=== PATIENT | male | born 1980 | race Caucasian/White ===

== ENCOUNTER 2018-01-17 13:53 | Inpatient (IN) | payer BC, MEDICAID ==
[2018-01-17] VITALS (9 sets, daily range): BP systolic 102–145; BP diastolic 72–93
[~2018-01-17] VITALS: Ht 177.8 cm; Wt 94.3 kg
[2018-01-17] MEDS ORDERED: ONDANSETRON HCL/PF 4 MG/2 ML VIAL IVP ONE (14:30)
[2018-01-17] MEDS ORDERED: IV NS 0.9% 1,000 ML BAG IV ONE ×3 (14:30→18:00)
[2018-01-17] MEDS ORDERED: FAMOTIDINE/PF INJ 20 MG/2 ML VIAL IV ONE ×3 (14:30→14:35)
[2018-01-17] MEDS ORDERED: LORAZEPAM INJ 2 MG/ML VIAL IV ONE ×2 (14:30→18:30)
--- NOTE | 2018-01-17 14:30 | NUR ---
32 yo male bb self. patient is alert and orietned, c/o abd pain. patient ambulated to er bed, skin warm and dry, resp even and unlabored. awaiting order sfrom provider, will continue to monitor
[2018-01-17] MEDS ORDERED: ONDANSETRON HCL/PF 4 MG/2 ML VIAL ONE (14:34)
[2018-01-17] MEDS ORDERED: LORAZEPAM INJ 2 MG/ML VIAL ONE (14:35)
[2018-01-17 14:39] LABS: APPEARANCE,URINE SLIGHTLY HAZY (CLEAR); BILIRUBIN,URINE LARGE (NEGATIVE); BLOOD, URINE Moderate Ery/uL (NEGATIVE); COLOR,URINE DARK YELLOW (YELLOW); KETONES,URINE 80 (NEGATIVE); LEUKOCYTE ESTERASE ,URINE Negative (NEGATIVE); NITRITE, URINE Negative (NEGATIVE); PH,URINE 5.5 (5.0-8.0); PROTEIN,URINE >=300 mg/dl (NEGATIVE); UGLUCOSE Negative (NEGATIVE)
[2018-01-17 14:46] LABS: BACTERIA,URINE None seen /HPF (None Seen); SQUAMOUS EPITHELIAL CELL,UR Few /HPF (None Seen); WBC,URINE 0-2 /HPF (0-3)
[2018-01-17 14:47] LABS: HYALINE CASTS, URINE Moderate /LPF (None Seen)
[2018-01-17 14:49] LABS: BASOPHILS # (AUTO) 0.5 /CMM (0.0-0.2); BASOPHILS % (AUTO) 2.8 % (0.0-2.0); EOSINOPHILS % (AUTO) 0.6 % (0.0-6.0); HEMATOCRIT 51 % (39-51); HEMOGLOBIN 17.6 g/dL (13.5-17.5); LYMPHOCYTES # (AUTO) 0.5 /CMM (0.8-4.8); LYMPHOCYTES % (AUTO) 2.9 % (20.0-44.0); MEAN CORPUSCULAR HGB CONC 35 g/dl (31.0-36.0); MEAN CORPUSCULAR VOLUME 98 fL (80-96); MONOCYTES # (AUTO) 1.2 /CMM (0.1-1.30); MONOCYTES % (AUTO) 6.8 % (2.0-12.0); NEUTROPHILS % (AUTO) 86.9 % (43.0-81.0); RDW COEFFICIENT OF VARIATION 12.6 (11.5-15.0); WHITE BLOOD COUNT (AUTO) 18.3 K/uL (4.3-11.0)
[2018-01-17 14:54] LABS: PLATELET COUNT (AUTO) 164 /CMM (150-450)
[2018-01-17 15:09] LABS: ALANINE AMINOTRANSFERASE 279 U/L (12-78); ALBUMIN 4.6 g/dL (3.4-5.0); ALKALINE PHOSPHATASE 97 U/L (46-116); ASPARTATE AMINOTRANSFERASE 223 U/L (15-37); BILIRUBIN,DIRECT 1.3 mg/dL (0.0-0.2); BILIRUBIN,TOTAL 2.9 mg/dL (0.2-1.0); CALCIUM, SERUM 8.8 mg/dL (8.5-10.1); CHLORIDE 85 mmol/L (98-107); CREATININE 2.6 mg/dL (0.6-1.3); GLUCOSE 346 mg/dL (74-106); POTASSIUM 5.9 mmol/L (3.5-5.1); SODIUM SERUM 127 mmol/L (136-145); TOTAL PROTEIN, SERUM 9.1 g/dL (6.4-8.2); UREA NITROGEN, BLOOD 17 mg/dL (7-18)
[2018-01-17 15:12] LABS: CARBON DIOXIDE 8 mmol/L (21-32)
[2018-01-17 15:50] LABS: LIPASE > 1500 U/L (73-393)
--- NOTE | 2018-01-17 16:00 | NUR ---
patient transported to ct via [place]
--- NOTE | 2018-01-17 16:22 | NUR ---
report given to rn for abby
--- NOTE | 2018-01-17 16:24 | NUR ---
transported pt to icu bed without incident
--- NOTE | 2018-01-17 16:49 | NUR ---
received patient from er bed #2. dr katlyn guevara aware of admission. patient states pain in abd still present but better. patient is shakey; ativan given in er. nausea still present but no vomiting episodes at this time. patient ambulatory unsteady gate. denies sob, difficulty breathing. bp 145/93. sinus tachy 113. 100% room air. respirations 25-35 with activity. safety precautions in place, hob elevated. call light in reach. will round prn
--- NOTE | 2018-01-17 16:55 | NUR ---
GERALD METCALF AT BEDSIDE. AWARE OF CRITICAL LAB LACTIC ACID 4.4.
--- NOTE | 2018-01-17 17:40 | NUR ---
PER GERALD METCALF GIVE PATIENT WIDE OPEN 2L NS BOLUS. AND GIVE 1MG DILAUDID IVP ONCE
[2018-01-17] MEDS ORDERED: HYDROMORPHONE INJ 0.5 MG/0.5 ML SYRINGE IV ONE (18:00)
[2018-01-17] MEDS ORDERED: IV NS 0.9% 1,000 ML IV SCH (18:00)
[2018-01-17] MEDS ORDERED: HYDROMORPHONE 1 MG/1 ML DISP.SYRIN IV ONE (18:00)
--- NOTE | 2018-01-17 18:03 | NUR ---
PER GERALD TEA ORDER 2MG IVP ATIVAN ONCE. UPDATED ON CT RESULTS
[2018-01-17] MEDS ORDERED: ONDANSETRON HCL/PF 4 MG/2 ML VIAL IVP PRN (18:30)
--- NOTE | 2018-01-17 18:38 | NUR ---
PAVING RAMMER AT BEDSIDE. PATIENT STATES DILAUDID HAS HELPED GREATLY WITH PAIN; APPEARS MORE COMFORTABLE. PATIENT HAD 1 EPISODE OF GREEN LOOKING EMESIS; GERALD METCALF AWARE. ALL NEEDS ASSESSED AND MET. SAFETY PRECAUTIONS IN PLACE. CALL LIGHT IN REACH. WILL ENDORSE CARE TO RN FOR CANDICE. PENDING ELECTROLYTE LEVELS PER MD.
[2018-01-17 19:12] LABS: MAGNESIUM 1.5 mg/dL (1.8-2.4); PHOSPHORUS 3.1 mg/dL (2.5-4.9)
--- NOTE | 2018-01-17 19:25 | NUR ---
1925 Received patient awake alert and oriented x3.VS stable.ST 111-112.Respiration even and unlabored SPO2 99% on RA.Denies any discomfort at present.NS 2nd liter bolus infusing to RAC site intact.Instructed patient to use call light at bedside for assistance.Verbalized understanding.
[2018-01-17] MEDS: IV NS 0.9% 1,000 ML IV PRN (20:22)
[2018-01-17] MEDS: HYDROMORPHONE INJ 0.5 MG/0.5 ML SYRINGE IV PRN ×2 (20:29→22:38)
[2018-01-17] MEDS: LORAZEPAM INJ 2 MG/ML VIAL IV PRN ×2 (20:30→22:38)
[2018-01-17 21:32] LABS: CALCIUM, SERUM 7.2 mg/dL (8.5-10.1); CREATININE 2.1 mg/dL (0.6-1.3); POTASSIUM 5.8 mmol/L (3.5-5.1)
[2018-01-17] MEDS ORDERED: SODIUM POLYSTYRENE SULFONATE 15 G/60 ML BOTTLE PO ONE (23:30)
[2018-01-17 23:55] LABS: INR 1.01 (0.87-1.13)
[2018-01-17] MEDS: Magnesium 1GM/D5W 100ML PREMIX 100 ML IV SCH (23:56)
[2018-01-18] VITALS (27 sets, daily range): BP systolic 101–129; BP diastolic 62–89
[2018-01-18] MEDS ORDERED: IV NS 0.9% 250 ML BAG IV ONE
--- NOTE | 2018-01-18 | NUR ---
Patient labs MG 1.5 to received 4 GM Magnesium IVPB over 4 hrs. K+ 5.8 kayexelate 60 gm given po per MD'S orders.
[2018-01-18] MEDS: LORAZEPAM INJ 2 MG/ML VIAL IV PRN (00:38)
[2018-01-18] MEDS: HYDROMORPHONE INJ 0.5 MG/0.5 ML SYRINGE IV PRN (00:40)
[2018-01-18] MEDS: Magnesium 1GM/D5W 100ML PREMIX 100 ML IV SCH ×3 (01:00→03:00)
[2018-01-18] MEDS: IV NS 0.9% 1,000 ML IV PRN ×3 (02:27→19:29)
--- NOTE | 2018-01-18 03:00 | NUR ---
Bladder scan shows 999 ml.Called to Cheryl PASTRANA with orders.In and Out Cath done under sterile technique obtained 1000 ml clear luba urine.Patient tolerated procedure well.
--- NOTE | 2018-01-18 04:00 | NUR ---
Patient resting.VS stable.SR.AM care done.Turned and repositioned with patient assisting. Denies pain or any discomfort.No bm noted yet from Kayexelate.
[2018-01-18 04:47] LABS: BASOPHILS % (AUTO) 0.4 % (0.0-2.0); HEMATOCRIT 43 % (39-51); HEMOGLOBIN 14.9 g/dL (13.5-17.5); LYMPHOCYTES # (AUTO) 0.3 /CMM (0.8-4.8); LYMPHOCYTES % (AUTO) 3.7 % (20.0-44.0); MEAN CORPUSCULAR HGB CONC 34 g/dl (31.0-36.0); MEAN CORPUSCULAR VOLUME 98 fL (80-96); MONOCYTES # (AUTO) 0.7 /CMM (0.1-1.30); MONOCYTES % (AUTO) 8.7 % (2.0-12.0); NEUTROPHILS # (AUTO) 7.2 /CMM (1.8-8.9); NEUTROPHILS % (AUTO) 87.2 % (43.0-81.0); PLATELET COUNT (AUTO) 86 /CMM (150-450); RED BLOOD CELL COUNT(AUTO) 4.45 MIL/uL (4.5-6.0); WHITE BLOOD COUNT (AUTO) 8.3 K/uL (4.3-11.0)
[2018-01-18 05:22] LABS: THYROID STIMULATING HORMONE 2.866 uIU/mL (0.358-3.74)
[2018-01-18 05:23] LABS: LYMPHOCYTES % (MANUAL) 1 % (16-48); MONOCYTES % (MANUAL) 10 % (0-11.0); NEUTROPHILS % (MANUAL) 89 (42-76)
[2018-01-18 05:24] LABS: ALBUMIN 3.2 g/dL (3.4-5.0); BILIRUBIN,TOTAL 1.8 mg/dL (0.2-1.0); CALCIUM, SERUM 7.6 mg/dL (8.5-10.1); MAGNESIUM 2.7 mg/dL (1.8-2.4); PHOSPHORUS 1.8 mg/dL (2.5-4.9); POTASSIUM 4.5 mmol/L (3.5-5.1); TOTAL PROTEIN, SERUM 6.5 g/dL (6.4-8.2)
--- NOTE | 2018-01-18 07:21 | NUR ---
Patient resting.VS stable.Patient not voided freely since in and out cath done at 0300.No BM noted all throughout the shift.No seizure activity noted.Report given to incoming shift RN for continuity of care.
--- NOTE | 2018-01-18 07:30 | NUR ---
RECEIVED PATIENT A/OX4 DENIES PAIN AT THIS TIME. LETHARGIC. IVF RUNNING ORDERED. NEEDS IN REACH. SAFETY PRECAUTIONS IN PLACE. PATIENT GIVEN KAYEXALATE FOR ELEVATED K AND REPEAT WNL. PER NIGHT RN PATIENT WAS NOT URINATING HOWEVER NO HX OF RETENTION. IN AND OUT CATH PRODUCED 1000ML. WILL MONITOR OUTPUT. IV SITE CLEAN DRY AND INTACT. WILL ROUND PRN. NO S/S SEIZURE ACTIVITY.
--- NOTE | 2018-01-18 08:33 | NUR ---
CARE ENDORSED TO MELANY WHEATLEY FOR CANDICE
--- NOTE | 2018-01-18 10:41 | NUR ---
Social service consult requested by Dr. Hayden for alcohol abuse. Pt. is a 37 year old male who was admitted to [facility] ICU for pancreatitis/alcohol disorder. SW attempted to assess pt. bedside, however pt. was too drowsy for an assessment. SW to follow up again this afternoon when pt. is more alert and oriented.
[2018-01-18] MEDS ORDERED: K PHOS NEUTRAL 250 MG TABLET PO ONE (14:30)
[2018-01-18] MEDS: ACETAMINOPHEN 325 MG TABLET PO PRN (16:21)
--- NOTE | 2018-01-18 16:36 | NUR ---
BIOPHYSICS SCIENTIST NOTE: PATIENT TEMP 101.1. TYLENOL GIVEN, COOLING MEASURES DONE MOM @ BEDSIDE. GERALD METCALF N.P. NOTIFIED.
--- NOTE | 2018-01-18 17:00 | NUR ---
STOCK MIXER NOTE : TEMP 98.8.
--- NOTE | 2018-01-18 19:19 | NUR ---
DOOR TO DOOR SELLING DISTRIBUTOR NOTE: PATIENT CLINICALLY STABLE NO SOB, NO N/V, NO C/O PAIN. REPORT GIVEN TO JAYCEE MOSLEY FOR CANDICE. ALL SAFETY MEASURES IN PLACE.
--- NOTE | 2018-01-18 19:30 | NUR ---
Received patient A/O X 4.Temp 99.5 orally.Patient desat to 88% encouraged to cough and deep breath.O2 sat up to 94% on RA.ST 112-115.Denies pain, nausea or vomiting.IVF Hydration in progress via RAC and site intact.Offered clear liquid dinner but took mostly water and jello. For safety encouraged patient to use call light at BS for assistance.Verbalized understanding.
[2018-01-18 21:19] LABS: CALCIUM, SERUM 7.5 mg/dL (8.5-10.1); CREATININE 1.5 mg/dL (0.6-1.3)
[2018-01-18 21:21] LABS: POTASSIUM 2.8 mmol/L (3.5-5.1)
--- NOTE | 2018-01-18 21:30 | NUR ---
PM lab resulted K+ level 2.8 relayed to Antione PASTRANA with orders and carried out.
[2018-01-18] MEDS: POTASSIUM CL. PREMIX PERIPHER. 50 ML IV SCH ×3 (21:39→23:40)
[2018-01-19] VITALS (21 sets, daily range): BP systolic 114–133; BP diastolic 74–93
[2018-01-19] MEDS: POTASSIUM CL. PREMIX PERIPHER. 50 ML IV SCH ×7 (00:40→15:26)
[2018-01-19] MEDS: IV NS 0.9% 1,000 ML IV PRN ×4 (02:18→23:44)
--- NOTE | 2018-01-19 04:00 | NUR ---
Patient awake.Latest Temp 100.4 orally.Bed bath rendered with complete linens changed. Tolerating po liquids.IV hydration infusing well.Denies pain.Continue monitoring.
[2018-01-19 04:37] LABS: BASOPHILS % (AUTO) 0.5 % (0.0-2.0); EOSINOPHILS % (AUTO) 0.2 % (0.0-6.0); HEMATOCRIT 36 % (39-51); HEMOGLOBIN 12.6 g/dL (13.5-17.5); LYMPHOCYTES # (AUTO) 0.3 /CMM (0.8-4.8); LYMPHOCYTES % (AUTO) 5.3 % (20.0-44.0); MEAN CORPUSCULAR HGB CONC 35 g/dl (31.0-36.0); MEAN CORPUSCULAR VOLUME 97 fL (80-96); MONOCYTES # (AUTO) 0.5 /CMM (0.1-1.30); MONOCYTES % (AUTO) 8.8 % (2.0-12.0); NEUTROPHILS # (AUTO) 4.8 /CMM (1.8-8.9); NEUTROPHILS % (AUTO) 85.2 % (43.0-81.0); RDW COEFFICIENT OF VARIATION 13.4 (11.5-15.0); WHITE BLOOD COUNT (AUTO) 5.7 K/uL (4.3-11.0)
[2018-01-19 04:59] LABS: ALBUMIN 2.5 g/dL (3.4-5.0); BILIRUBIN,TOTAL 1.5 mg/dL (0.2-1.0); CALCIUM, SERUM 7.5 mg/dL (8.5-10.1); CREATININE 1.3 mg/dL (0.6-1.3); PHOSPHORUS 1.5 mg/dL (2.5-4.9); POTASSIUM 2.9 mmol/L (3.5-5.1); TOTAL PROTEIN, SERUM 5.6 g/dL (6.4-8.2)
[2018-01-19 05:28] LABS: PLATELET COUNT (AUTO) 30 /CMM (150-450)
[2018-01-19 05:39] LABS: BAND % (MANUAL) 5 % (0.0-5.0); LYMPHOCYTES % (MANUAL) 1 % (16-48); MONOCYTES % (MANUAL) 7 % (0-11.0); NEUTROPHILS % (MANUAL) 87 (42-76)
--- NOTE | 2018-01-19 07:23 | NUR ---
Patient no complaints presented.AM labs resulted with potassium level 2.8,redraw down to 2.7 all done peripherally.platelet count 30.Results relayed to Irina PASTRANA with orders.Report given to MELANY Lacey for continuity of care.
--- NOTE | 2018-01-19 08:10 | NUR ---
INITIAL BIRTHING NURSE NOTE RCVD PT AWAKE AND ALERT, SHOWING NO S/O DISTRESS OR C/O PAIN AT THIS TIME. ST ON TELE. ON RA TOLERATING WELL. VOIDING TO URINAL. IV SITE C/D/I/PATENT. NO S/O INFILTRATION/PHLEBITIS OBSERVED IVF INFUSING. WILL CONTINUE TO MONITOR PT FOR SAFETY AND COMFORT. CALL LIGHT WITHIN REACH. BED IN LOW AND LOCKED POSITION.
--- NOTE | 2018-01-19 10:12 | NUR ---
BINDERY MACHINE SETTER NOTE PT BEING TRANSFERRED TO [address] [place] [address] IN STABLE CONDITION. REPORT GIVEN MELANY METCALF.
--- NOTE | 2018-01-19 10:30 | NUR ---
PT TRANSFERED TO TELE 3W FROM ICU. NO SOB OR DISTRESS NOTED. PATIENT DENIES PAIN. REPORT RECEIVED FROM JOSEPH FOR CANDICE. HEART RATE SINUS TACH 113.
[2018-01-19] MEDS: ACETAMINOPHEN 325 MG TABLET PO PRN (10:57)
[2018-01-19] MEDS ORDERED: NEUTRA PHOS 1 POWD.PACKET NG ONE (11:30)
--- NOTE | 2018-01-19 13:46 | NUR ---
Social service consult requested by Dr. Hayden for alcohol abuse. Pt. is a 37 year old male who was admitted to [facility] for pancreatitis/alcohol disorder. BURTON met with pt. bedside. Pt. is alert and oriented x 4. Pt. stated he is feeling much better today. Pt. resides alone in an apartment located at [address] [place] [address], [address] [place] [address]. Pt. states he drinks a bottle of whiskey per day. Pt. has been drinking a bottle per day for the past five years. Pt. was in an alcohol treatment program in [place] three years ago. BURTON inquired with pt. if he is interested in attending an alcohol treatment program. Pt. declined but is open to getting a list of alcohol treatment programs. SW to give pt. a list of alcohol treatment programs prior to discharge. Pt. stated he was suffering from Depression and anxiety but is doing better. BURTON encouraged pt. to see a therapist. Pt. agreed. SW to give pt. list of mental health clinics prior to discharge as well. Pt. denies suicidal/homicidal ideations and visual/auditory hallucinations at this time. No other social service needs are requested at this time. BURTON is available, if needed. Addendum: 01/19/18 at 1514 by HERIBERTO MANRIQUE BURTON met with pt.bedside and gave him list of alcohol treatment programs which include [facility] and [facility]. BURTON also gave pt. list of mental health clinics which included [facility] health, [facility] etc.
--- NOTE | 2018-01-19 14:21 | NUR ---
REPORT GIVEN TO DARLYN FOR CANDICE. PATIENT RESTING COMFORTABLY IN BED. NO SOB OR DISTRESS NOTED AT THIS TIME.
--- NOTE | 2018-01-19 14:30 | NUR ---
SPINNER FRAME NOTES RECEIVED PT FROM TEA MOSLEY, PT IS AWAKE, ALERT AND ORIENTED, DENIES PAIN AT THIS TIME, NOT IN DISTRESS, CALL LIGHT WITHIN REACH, IV FLUIDS INFUSING WELL, NEEDS ATTENDED, KEPT COMFORTABLE IN BED.
[2018-01-19] MEDS: LORAZEPAM INJ 2 MG/ML VIAL IV PRN ×2 (15:25→22:49)
--- NOTE | 2018-01-19 19:00 | NUR ---
TREAD BUILDER NOTES PT IN BED, ASLEEP, EASY TO AROUSE, ALERT AND ORIENTED, DENIES PAIN OR ANY DISCMFORT, RESPIRATIONS NORMAL, CALL LIGHT WITHIN REACH, KEPT COMFORTABLE, ALL NEEDS ATTENDED.
--- NOTE | 2018-01-19 19:30 | NUR ---
RN NOTES RECEIVED PT ASLEEP, HOB ELEVATED, NO SIGNS OF DISTRESS AND DISCOMFORT NOTED. BREATHING REGULAR AND UNLABORED, ON ROOM AIR AND TOLERATED WELL. IV ACCESS ON LEFT FOREARM AND RIGHT AC PATENT AND INTACT WITH ONGOING IVF INFUSING WELL. SAFETY MEASURES AND FALL PRECAUTION OBSERVED. WILL CONTINUE TO MONITOR PT.
[2018-01-19 21:21] LABS: CALCIUM, SERUM 7.4 mg/dL (8.5-10.1); CREATININE 1.1 mg/dL (0.6-1.3); POTASSIUM 3.1 mmol/L (3.5-5.1)
[2018-01-20] VITALS: BP 151/98
[2018-01-20] MEDS ORDERED: POTASSIUM CHLORIDE 20 MEQ TAB.PRT.SR PO ONE
[2018-01-20 04:01] VITALS: BP 142/89
[2018-01-20] MEDS: IV NS 0.9% 1,000 ML IV PRN (06:02)
[2018-01-20 06:52] LABS: BASOPHILS % (AUTO) 0.5 % (0.0-2.0); EOSINOPHILS % (AUTO) 1.6 % (0.0-6.0); HEMATOCRIT 35 % (39-51); HEMOGLOBIN 12.5 g/dL (13.5-17.5); LYMPHOCYTES # (AUTO) 0.6 /CMM (0.8-4.8); LYMPHOCYTES % (AUTO) 11.5 % (20.0-44.0); MEAN CORPUSCULAR HGB CONC 35 g/dl (31.0-36.0); MEAN CORPUSCULAR VOLUME 97 fL (80-96); MONOCYTES # (AUTO) 0.5 /CMM (0.1-1.30); MONOCYTES % (AUTO) 9.8 % (2.0-12.0); NEUTROPHILS # (AUTO) 3.9 /CMM (1.8-8.9); NEUTROPHILS % (AUTO) 76.6 % (43.0-81.0); PLATELET COUNT (AUTO) 82 /CMM (150-450); RDW COEFFICIENT OF VARIATION 13.3 (11.5-15.0); RED BLOOD CELL COUNT(AUTO) 3.66 MIL/uL (4.5-6.0); WHITE BLOOD COUNT (AUTO) 5.1 K/uL (4.3-11.0)
[2018-01-20 07:09] LABS: ALBUMIN 2.6 g/dL (3.4-5.0); BILIRUBIN,TOTAL 1.7 mg/dL (0.2-1.0); CALCIUM, SERUM 7.7 mg/dL (8.5-10.1); CREATININE 0.9 mg/dL (0.6-1.3); MAGNESIUM 2.2 mg/dL (1.8-2.4); PHOSPHORUS 1.4 mg/dL (2.5-4.9); POTASSIUM 3.3 mmol/L (3.5-5.1); TOTAL PROTEIN, SERUM 5.8 g/dL (6.4-8.2)
--- NOTE | 2018-01-20 07:24 | NUR ---
RN NOTES PT SLEPT OVERNIGHT, VITAL SIGNS STABLE. CURRENT DIET TOLERATED WELL. DENIES PAIN NAUSEA AND VOMITING. TELEMONITOR READS SINUS RHYTHM WITH HEART RATE AT 79. NO SIGNIFICANT CHANGE IN CONDITION NOTED. WILL ENDORSE TO ORNING RN FOR CONTINUITY OF CARE.
[2018-01-20 08:00] VITALS: BP 138/86
--- NOTE | 2018-01-20 08:00 | NUR ---
RN NOTES RECEIVED PATIENT IN THE BED RESTING, PATIENT A/O X4, NO SOB, NO RESPIRATORY DISTRESS. PATIENT REFUSED PAIN AT THIS TIME, ALSO CLEAR LIQUID DIET, REDIRECTABLE. V/S TAKEN. INFUSING NS AT 150 ML /HR INTACT. ENCOURAGED TO EXPRESS FEELINGS AND CONCERNS. PATIENT USING URINAL AND BRP. CALL LIGHT WITHIN TO REACH. CONTINUED MONITORING.
--- NOTE | 2018-01-20 09:06 | NUR ---
RN NOTES PATIENT D/C TELE TO MED/SURGE BY Dr. KHALIL, CONTINUED MONITORING.
[2018-01-20] MEDS: ACETAMINOPHEN 325 MG TABLET PO PRN (09:14)
--- NOTE | 2018-01-20 09:14 | NUR ---
RN NOTES ADMINISTERED TYLENOL 650 MG PO PRN FOR T-100.1, ALSO GIVEN ICE PACKS PUT ON ARMPITS., V/S TAKEN STABLE BP- 147/73, P-92, R-19, O2-98 ROOM AIR. PATIENT AMBULATORY SELF CARE. CALL LIGHT WITHIN TO REACH, SAFETY PRECAUTION MAINTAINED ALL THE TIME.
[2018-01-20 09:21] LABS: BAND % (MANUAL) 3 % (0.0-5.0); EOSINOPHILS % (MANUAL) 2 % (0-4); LYMPHOCYTES % (MANUAL) 10 % (16-48); MONOCYTES % (MANUAL) 5 % (0-11.0); NEUTROPHILS % (MANUAL) 80 (42-76)
--- NOTE | 2018-01-20 10:30 | NUR ---
RN NOTES T-98.7 AT THIS TIME MEDIATION WERE ADMINISTERED EFFECTIVE. MOTHER NEXT TO THE KAMARI. CONTINUED MONITORING.
[2018-01-20] MEDS ORDERED: POTASSIUM CHLORIDE 20 MEQ POWDER PACKET PO SCH (12:00)
[2018-01-20] MEDS ORDERED: NEUTRA PHOS 1 POWD.PACKET NG ONE (14:00)
[2018-01-20] MEDS ORDERED: ESCI5TAB PO (15:05)
[2018-01-20] MEDS ORDERED: MULT1TAB73 PO (15:05)
[2018-01-20] MEDS ORDERED: THIA100T74 PO (15:05)
--- NOTE | 2018-01-20 16:10 | NUR ---
DISCHARGE NOTES PATIENT DISCHARGE AT THIS TIME GOING HOME. PATIENT A/O X4, NO COMPLAINING OF PAIN AT THIS TIME. V/S STABLE. PATIENT SELF CARE. MED RECONCILIATION AND DISCHARGE ORDER REVIEWED AND EXPLAINED TO PATIENT. PATIENT VERBALIZED UNDERSTANDING. PATIENT WILL FOLLOW PRIMARY MD. PRESCRIPTION GIVEN TO THE PATIENT. PATIENT SIGN PAPERWORK. ESCORTED PATIENT TO THE LOBBY FOR SAFETY. PATIENT STONECUTTER ASSISTANT BY VIVEK BISHOP.
== END 2018-01-20 16:12 | disposition home or self-care (01) | DRG 282 ==
LOC: ER 13:54 → ICU 16:18 → TELE 01-19 10:34 → MED 01-20 08:47
PROVIDERS: ADMIT Nurse Practitioner Acute Care; ATTEND Nurse Practitioner Acute Care
DX: K85.20 Alcohol induced acute pancreatitis without necrosis or infection (principal); N17.0 Acute kidney failure with tubular necrosis; R65.11 Systemic inflammatory response syndrome (SIRS) of non-infectious origin with acute organ dysfunction; E87.2 Acidosis; K70.10 Alcoholic hepatitis without ascites; E87.5 Hyperkalemia; E83.42 Hypomagnesemia; K76.0 Fatty (change of) liver, not elsewhere classified; E87.1 Hypo-osmolality and hyponatremia; D75.89 Other specified diseases of blood and blood-forming organs; E86.0 Dehydration; D72.829 Elevated white blood cell count, unspecified; E80.6 Other disorders of bilirubin metabolism; F10.239 Alcohol dependence with withdrawal, unspecified; T51.0X1A Toxic effect of ethanol, accidental (unintentional), initial encounter; Y90.9 Presence of alcohol in blood, level not specified; K86.2 Cyst of pancreas
CPT/HCPCS: 36415; 80048-TC; 80053-TC; 80061-TC; 80076-TC; 81000-TC; 83605-TC; 83690-TC; 83735-TC; 84100-TC; 84132-TC; 84443-TC; 85025-TC; 85610-TC; 87040-TC; 87081-TC; 93307-TC; A4606; J2060; J2405; J3475; J3480; J3490; J7030; J7042; J7050; Z7610

== ENCOUNTER 2018-09-28 04:34 | Inpatient (IN) | payer MEDICAID ==
[~2018-09-28] VITALS: Ht 177.8 cm; Wt 83.9 kg
[~2018-09-28 04:34] MED LIST: MULT1TAB73 PO; THIA100T74 PO
--- NOTE | 2018-09-28 04:45 | NUR ---
Pt came in due to epigastric pain since last night, 8/10 on scale, N/V, denies chills and fever. Pt is A, O/4, able to move all extremities without difficulty, on RA.
--- NOTE | 2018-09-28 04:47 | NUR ---
Urine collected, will call to pick-up specimen.
[2018-09-28] MEDS ORDERED: ONDANSETRON HCL/PF 4 MG/2 ML VIAL IVP ONE (05:00)
[2018-09-28] MEDS ORDERED: IV NS 0.9% 500 ML BAG IV ONE (05:00)
[2018-09-28] MEDS ORDERED: HYDROMORPHONE INJ 2 MG/ML DISP.SYRIN IV ONE (05:00)
[2018-09-28] MEDS ORDERED: ONDANSETRON HCL/PF 4 MG/2 ML VIAL ONE (05:14)
[2018-09-28] MEDS ORDERED: HYDROMORPHONE INJ 0.5 MG/0.5 ML SYRINGE ONE (05:14)
[2018-09-28 05:20] LABS: BASOPHILS % (AUTO) 0.2 % (0.0-2.0); EOSINOPHILS % (AUTO) 0.2 % (0.0-6.0); HEMATOCRIT 50 % (39-51); HEMOGLOBIN 17.3 g/dL (13.5-17.5); LYMPHOCYTES # (AUTO) 0.9 /CMM (0.8-4.8); LYMPHOCYTES % (AUTO) 7.2 % (20.0-44.0); MEAN CORPUSCULAR HGB CONC 35 g/dl (31.0-36.0); MEAN CORPUSCULAR VOLUME 97 fL (80-96); MONOCYTES # (AUTO) 0.8 /CMM (0.1-1.30); MONOCYTES % (AUTO) 6.4 % (2.0-12.0); NEUTROPHILS # (AUTO) 10.9 /CMM (1.8-8.9); PLATELET COUNT (AUTO) 186 /CMM (150-450); RED BLOOD CELL COUNT(AUTO) 5.18 MIL/uL (4.5-6.0); WHITE BLOOD COUNT (AUTO) 12.6 K/uL (4.3-11.0)
--- NOTE | 2018-09-28 05:20 | NUR ---
EKG in progress
[2018-09-28 05:22] LABS: CALCIUM, SERUM 9.8 mg/dL (8.5-10.1); CARBON DIOXIDE 17 mmol/L (21-32); CHLORIDE 93 mmol/L (98-107); GLUCOSE 135 mg/dL (74-106); POTASSIUM 4.2 mmol/L (3.5-5.1); SODIUM SERUM 134 mmol/L (136-145); UREA NITROGEN, BLOOD 12 mg/dL (7-18)
--- NOTE | 2018-09-28 05:27 | NUR ---
Pt transported to Radiology for CT of Abd
[2018-09-28 05:29] LABS: ALANINE AMINOTRANSFERASE 376 U/L (12-78); ALBUMIN 4.8 g/dL (3.4-5.0); ALKALINE PHOSPHATASE 75 U/L (46-116); ASPARTATE AMINOTRANSFERASE 190 U/L (15-37); BILIRUBIN,DIRECT 0.6 mg/dL (0.0-0.2); BILIRUBIN,TOTAL 1.9 mg/dL (0.2-1.0); LIPASE 2146 U/L (73-393)
[2018-09-28 05:39] LABS: APPEARANCE,URINE CLEAR (CLEAR); BILIRUBIN,URINE 1+ (NEGATIVE); BLOOD, URINE TRACE Ery/uL (NEGATIVE); COLOR,URINE YELLOW (YELLOW); KETONES,URINE 3+ (NEGATIVE); LEUKOCYTE ESTERASE ,URINE NEGATIVE (NEGATIVE); NITRITE, URINE NEGATIVE (NEGATIVE); PH,URINE 5.5 (5.0-8.0); PROTEIN,URINE 1+ mg/dl (NEGATIVE); UGLUCOSE NEGATIVE (NEGATIVE); UROBILINOGEN,URINE 0.2 EU/dL (0.2)
[2018-09-28 05:45] LABS: BACTERIA,URINE Rare /HPF (None Seen); RBC,URINE 0-2 /HPF (0-2); SQUAMOUS EPITHELIAL CELL,UR Rare /HPF (None Seen); WBC,URINE 0-2 /HPF (0-3)
--- NOTE | 2018-09-28 05:50 | NUR ---
Pt states his abdominal pain was relieved, 4/10 on scale at this time
--- NOTE | 2018-09-28 06:15 | NUR ---
Pt will be admitted to MS, Rm 317-2. Pt notified, report given to MELANY Rojas.
--- NOTE | 2018-09-28 06:30 | NUR ---
Transported pt via w/c to MS floor in fair condition accompanied by SO. Handed off to MELANY Rojas in 317-2. VSS
[2018-09-28 07:00] VITALS: BP 145/84
[2018-09-28] MEDS ORDERED: ACETAMINOPHEN 325 MG TABLET PO PRN (07:00)
[2018-09-28] MEDS ORDERED: Z GUARD REMEDY 2 OZ OINT TP PRN (07:00)
[2018-09-28] MEDS ORDERED: HYDROCODONE/APAP 5/325MG 1 EACH TABLET PO PRN (07:00)
[2018-09-28] MEDS ORDERED: KETOROLAC TROMETHAMINE INJ 30 MG/ML VIAL IV PRN (07:00)
[2018-09-28] MEDS ORDERED: ONDANSETRON HCL/PF 4 MG/2 ML VIAL IVP PRN (07:00)
[2018-09-28] MEDS ORDERED: ZOLPIDEM TARTRATE 5 MG TABLET PO PRN (07:00)
[2018-09-28] MEDS ORDERED: MAGNESIUM HYDROXIDE 30 ML UDC PO PRN (07:00)
--- NOTE | 2018-09-28 07:00 | NUR ---
RECEIVED PT AWAKE A/OX4 , PT WAS ADM. AT 0615 DX ACUTE PANCREATITIS . BREATHING UNLABORED AND EVEN ON ROOM AIR, IV LINE LAC G 20 H/L AT THIS TIME.NO COMPLAIN OF PAIN AT THIS TIME. SKIN INTACT. WILL CONTINUE TO MONITOR AND F/U WITH MD ORDER
[2018-09-28 08:00] VITALS: BP 136/75
[2018-09-28] MEDS: IV NS 0.9% 1,000 ML IV PRN ×3 (08:19→22:56)
[2018-09-28] MEDS ORDERED: Thiamine 100 MG in IV D5W 50 ML IV SCH (12:30)
--- NOTE | 2018-09-28 12:30 | NUR ---
INFORMED DR. DUARTE THAT PT NEEDS GI CONSULT
[2018-09-28] MEDS ORDERED: D5W IV ONE (13:00)
[2018-09-28] MEDS ORDERED: THIAMINE IV ONE (13:00)
[2018-09-28] MEDS: HYDROMORPHONE INJ 2 MG/ML DISP.SYRIN IV PRN ×3 (13:12→21:13)
--- NOTE | 2018-09-28 18:50 | NUR ---
PT IN BED .BREATHING UNLABORED AND EVEN ON ROOM AIR, IV LINE LAC G 20 IV FLUID RUNNING AT 150ML/HR.PRN PAIN MED GIVEN EVERY 4H. AWAITING FOR DR. DUARTE. SAFETY PRECAUTIONS IN PLACE , CALL LIGHT WITHIN REACH. WILL ENDORSE TO NEXT SHIFT FOR CANDICE.
--- NOTE | 2018-09-28 20:00 | NUR ---
MS RN OPENING NOTES RECEIVED PATIENT AWAKE IN BED WITH NO DISTRESS NOTED. CALL LIGHT WITHIN REACH. DR. DUARTE AT BEDSIDE AND EVALUATING PATIENT. NO C/O PAIN OR DISCOMFORT. PERIPHERAL LINE INTACT AND PATENT. BED IN LOW LOCK SETTING. ALL BELONGINGS KEPT NEAR BEDSIDE. WILL CONTINUE TO MONITOR.
--- NOTE | 2018-09-28 20:22 | NUR ---
[facility].
--- NOTE | 2018-09-28 20:23 | NUR ---
MRCP APPROVED. IT WILL BE TOMORROW AM .
--- NOTE | 2018-09-28 20:25 | NUR ---
FOR MRCP PATIENT NEEDS TO BE NPO AFTER MIDNITE NURSE REBEKAH IS AWARE OF IT.
[2018-09-28 20:47] VITALS: BP 156/115
[2018-09-29] MEDS: HYDROMORPHONE INJ 2 MG/ML DISP.SYRIN IV PRN ×4 (02:19→22:57)
[2018-09-29] MEDS: IV NS 0.9% 1,000 ML IV PRN ×2 (06:23→12:33)
--- NOTE | 2018-09-29 06:39 | NUR ---
MS RN CLOSING NOTES PATIENT ASLEEP IN BED WITH NO DISTRESS NOTED. CALL LIGHT WITHIN REACH. NO FURTHER C/O PAIN OR DISCOMFORT. NPO STATUS OBSERVED AND MAINTAINED AT ALL TIMES FOR SCHEDULED MRCP TODAY. PERIPHERAL LINE INTACT AND PATENT. BED IN LOW LOCK SETTING. ALL BELONGINGS KEPT NEAR BEDSIDE. WILL ENDORSE TO ONCOMING SHIFT.
--- NOTE | 2018-09-29 07:29 | NUR ---
RN OPENING NOTES PT RECEIVED IN BED AT LOWEST AND LOCKED POSITION WITH SIDE RAILS UP X2, A/O X4, BREATHING EVEN AND UNLABORED ON RA, NO S/S OF PAIN OR DISTRESS CURRENTLY NOTED, IV IS PATENT AND INTACT, CURRENTLY NPO FOR PROCEDURE THIS MORNING, SAFETY PRECAUTIONS IN PLACE, CALL LIGHT WITHIN REACH, WILL MONITOR ACCORDINGLY
[2018-09-29 07:49] LABS: HEMATOCRIT 51 % (39-51); HEMOGLOBIN 17.2 g/dL (13.5-17.5); LYMPHOCYTES # (AUTO) 0.4 /CMM (0.8-4.8); LYMPHOCYTES % (AUTO) 2.9 % (20.0-44.0); MEAN CORPUSCULAR HGB CONC 34 g/dl (31.0-36.0); MEAN CORPUSCULAR VOLUME 98 fL (80-96); MONOCYTES % (AUTO) 7.1 % (2.0-12.0); NEUTROPHILS # (AUTO) 12.8 /CMM (1.8-8.9); PLATELET COUNT (AUTO) 130 /CMM (150-450); RED BLOOD CELL COUNT(AUTO) 5.16 MIL/uL (4.5-6.0); WHITE BLOOD COUNT (AUTO) 14.2 K/uL (4.3-11.0)
[2018-09-29 07:57] LABS: CALCIUM, SERUM 8.8 mg/dL (8.5-10.1); CREATININE 1.1 mg/dL (0.6-1.3); MAGNESIUM 1.9 mg/dL (1.8-2.4); PHOSPHORUS 2.7 mg/dL (2.5-4.9); POTASSIUM 4.4 mmol/L (3.5-5.1)
[2018-09-29 08:00] VITALS: BP 154/79
--- NOTE | 2018-09-29 08:12 | NUR ---
RN NOTE PT WANTED PAIN MEDICATION BEFORE HEADING OUT FOR MRI, DILAUDID WAS GIVEN FOR PAIN LEVEL OF 8-9 AT THIS TIME. WILL MONITOR ACCORDINGLY.
[2018-09-29] MEDS ORDERED: LORAZEPAM INJ 2 MG/ML VIAL IV PRN (11:30)
[2018-09-29] MEDS ORDERED: Thiamine 100 MG in IV D5W 50 ML IV SCH (13:00)
[2018-09-29] MEDS: THIAMINE HCL 100 MG TABLET PO SCH (13:22)
--- NOTE | 2018-09-29 13:22 | NUR ---
RN NOTE PRN DILAUDID GIVEN AT THIS TIME FOR A PAIN LEVEL OF 8 AT THIS TIME, WILL MONITOR ACCORDINGLY
[2018-09-29 16:00] VITALS: BP 148/90
--- NOTE | 2018-09-29 18:04 | NUR ---
RN CLOSING NOTES PT IN BED AT LOWEST AND LOCKED POSITION WITH SIDE RAILS UP X2, A/O X4, BREATHING EVEN AND UNLABORED, NO PAIN OR DISTRESS CURRENTLY NOTED, NOT COMPLAINING OF ANY PAIN AT THIS TIME, IV IS PATENT AND INTACT, SAFETY PRECAUTIONS IN PLACE, CALL LIGHT WITHIN REACH, ALL NEEDS ATTENDED TO, WILL ENDORSE TO ONCOMING RADIATION CONTROL SPECIALIST RN FOR CONTINUITY OF CARE.
[2018-09-29 20:00] VITALS: BP 131/93
--- NOTE | 2018-09-29 20:00 | NUR ---
MS/RN OPENING NOTES RECEIVED PATIENT IN BED, AWAKE, ALERT X4, ABLE TO VERBALIZE NEEDS, DENIES PAIN. FAMILY AT BEDSIDE, SKIN WARM TO TOUCH, RESPIRATIONS EVEN AND UNLABORED, CALL LIGHTS WITHIN REACH, BED LOCKED, WILL MONITOR. IV FLUIDS RUNNING.
--- NOTE | 2018-09-29 23:07 | NUR ---
MS/RN NOTES PATIENT REPORTED PAIN IN ABDOMEN, AMBULATES TO BATHROOM AND CAN REPOSITION, ABLE TO DRINK FLUIDS AND TOLERATED WELL WITHOUT N/V. HELD INF AT THIS TIME WILL START IVF LATER,DILAUDID 1MG/0.5ML ADMINISTERED, WILL MONITOR EFFECTIVENESS, B/P CHECK AT 140/80. OXYGENATION AT 96% IN RA. WILL MONITOR.
[2018-09-30] MEDS: IV NS 0.9% 1,000 ML IV PRN ×2 (00:53→08:36)
--- NOTE | 2018-09-30 06:33 | NUR ---
317-2 MA/RN NOTES PATIENT ABLE TO SLEEP DURING THE NIGHT, DENIES PAIN. KEPT COMFORTABLE, IV HYDRATION PROVIDED. WILL MONITOR. BED LOCKED. WILL ENDORSE TO AM RN FOR CANDICE. RESTING COMFORTABLY, RESPIRATIONS EVEN AND UNLABORED, ABLE TO VERBALIZE NEEDS.
--- NOTE | 2018-09-30 07:20 | NUR ---
MS RN OPENING NOTES RECEIVED PATIENT ASLEEP IN BED, EASILY AWAKENS. ALERT X4. ABLE TO VERBALIZE NEEDS, NO C/O PAIN OR DISCOMFORTS VOICED AT THIS TIME. ON ROOM AIR, BREATHING EVEN AND UNLABORED. IV ACCESS LAC INTACT AND PATENT, IVF OF NS @150ML/HR INFUSING WELL, NO S/S OF INFILTRATIONS NOTED. BED IN LOW LOCKED POSITIONS WITH SR UP X2. CALL LIGHT WITHIN REACH. WILL CONTINUE TO MONITOR ACCORDINGLY.
[2018-09-30 07:26] LABS: BASOPHILS % (AUTO) 0.3 % (0.0-2.0); EOSINOPHILS % (AUTO) 0.4 % (0.0-6.0); HEMATOCRIT 42 % (39-51); HEMOGLOBIN 14.5 g/dL (13.5-17.5); LYMPHOCYTES # (AUTO) 0.6 /CMM (0.8-4.8); LYMPHOCYTES % (AUTO) 7.7 % (20.0-44.0); MEAN CORPUSCULAR HGB CONC 34 g/dl (31.0-36.0); MEAN CORPUSCULAR VOLUME 97 fL (80-96); MONOCYTES # (AUTO) 0.7 /CMM (0.1-1.30); MONOCYTES % (AUTO) 8.4 % (2.0-12.0); NEUTROPHILS # (AUTO) 6.8 /CMM (1.8-8.9); NEUTROPHILS % (AUTO) 83.2 % (43.0-81.0); PLATELET COUNT (AUTO) 95 /CMM (150-450); RED BLOOD CELL COUNT(AUTO) 4.34 MIL/uL (4.5-6.0); WHITE BLOOD COUNT (AUTO) 8.2 K/uL (4.3-11.0)
[2018-09-30 07:34] LABS: BILIRUBIN,TOTAL 1.1 mg/dL (0.2-1.0); CALCIUM, SERUM 8.2 mg/dL (8.5-10.1); CREATININE 0.8 mg/dL (0.6-1.3); POTASSIUM 3.3 mmol/L (3.5-5.1); TOTAL PROTEIN, SERUM 6.3 g/dL (6.4-8.2)
[2018-09-30 08:00] VITALS: BP 142/85
[2018-09-30] MEDS: THIAMINE HCL 100 MG TABLET PO SCH (08:18)
[2018-09-30 08:57] LABS: BAND % (MANUAL) 1 % (0.0-5.0); LYMPHOCYTES % (MANUAL) 7 % (16-48); MONOCYTES % (MANUAL) 4 % (0-11.0); NEUTROPHILS % (MANUAL) 88 (42-76)
--- NOTE | 2018-09-30 09:29 | NUR ---
RN NOTES PATIENT TOLERATED SOFT DIET AT BREAKFAST WITH NO C/O ABDOMINAL PAIN, N & V. DIET ADVANCED TO REGULAR DIET FOR LUNCH. WILL CONTINUE TO MONITOR.
[2018-09-30] MEDS ORDERED: POTASSIUM CHLORIDE 20 MEQ TAB.PRT.SR PO SCH (09:30)
--- NOTE | 2018-09-30 09:47 | NUR ---
RN NOTES PATIENT NOTED WITH LOW LEVEL POTASSIUM 3.3 TODAY, REPLACED WITH K-DUR 20 MEQ PO. WILL CONTINUE TO MONITOR
--- NOTE | 2018-09-30 15:55 | NUR ---
DIRECTOR OF CREATIVE SERVICES NOTES PATIENT DISCHARGED HOME IN STABLE CONDITION. A/O X4. ABLE TO MAKE NEEDS KNOWN. TOLERATED REGULAR DIET AT LUNCH TIME WITH NO C/O ABDOMINAL PAIN, N & V. VICTORIANO GIRON MADE AWARE. VITAL SIGNS CHECKED AND RECORDED. SKIN IS INTACT. REFUSED PNA AND FLU VACCINES. IV ACCESS REMOVED WITH NO BLEEDING NOTED. ID BAND REMOVED. DISCHARGE INSTRUCTIONS GIVEN AND SAME EDUCATED TO STOP TAKING ALCOHOL, VERBALIZED UNDERSTANDING. PRESCRIPTION HANDED TO PT. PT LEFT UNIT @ 1550 AMBULATORY ACCOMPANIED BY CONTINUOUS MINER OPERATOR HELPER AND PT'S FRIEND ROSEMARIE. CHARGE NURSE AWARE OF DISCHARGE.
== END 2018-09-30 17:00 | disposition home or self-care (01) | DRG 282 ==
LOC: ER 04:37 → MED 06:12
PROVIDERS: ADMIT Nurse Practitioner Acute Care; ATTEND Nurse Practitioner Acute Care
DX: K85.20 Alcohol induced acute pancreatitis without necrosis or infection (principal); K76.0 Fatty (change of) liver, not elsewhere classified; E87.1 Hypo-osmolality and hyponatremia; E86.1 Hypovolemia; K57.30 Diverticulosis of large intestine without perforation or abscess without bleeding; F10.20 Alcohol dependence, uncomplicated; E87.6 Hypokalemia; F32.9 Major depressive disorder, single episode, unspecified; R74.0 Nonspecific elevation of levels of transaminase and lactic acid dehydrogenase [LDH]
CPT/HCPCS: 36415; 74181-TC; 80048-TC; 80053-TC; 80061-TC; 80076-TC; 81000-TC; 83690-TC; 83735-TC; 84100-TC; 84484-TC; 85025-TC; 85730-TC; 87081-TC; G0378; J1170; J1885; J2405; J3411; J7030; J7040; J7060

== ENCOUNTER 2019-04-23 03:20 | Inpatient (IN) | payer BC, MEDICAID ==
[~2019-04-23] VITALS: Ht 180.3 cm; Wt 88.9 kg
[2019-04-23] MEDS ORDERED: MORPHINE SULFATE INJ 2 MG/ML DISP.SYRIN ONE (03:51)
[2019-04-23] MEDS ORDERED: MORPHINE SULFATE INJ 4 MG/ML DISP.SYRIN ONE (03:51)
[2019-04-23] MEDS ORDERED: ONDANSETRON HCL/PF 4 MG/2 ML VIAL ONE (03:51)
[2019-04-23 04:00] LABS: CALCIUM, SERUM 9.2 mg/dL (8.5-10.1); CREATININE 1.1 mg/dL (0.6-1.3); POTASSIUM 4.1 mmol/L (3.5-5.1)
[2019-04-23] MEDS ORDERED: ONDANSETRON HCL/PF 4 MG/2 ML VIAL IVP ONE (04:00)
[2019-04-23] MEDS ORDERED: MORPHINE SULFATE INJ 2 MG/ML DISP.SYRIN IV ONE (04:00)
[2019-04-23] MEDS ORDERED: IV NS 0.9% 1,000 ML BAG IV ONE (04:00)
--- NOTE | 2019-04-23 04:03 | NUR ---
BIBSELF FROM HOME. TO ER BED 9. AAOX4. NO RESP DISTRESS, BREATHING EVEN AND UNLABORED. AMBULATORY. C/O EPIGASTRIC PAIN 10/10 SHARP, STABBING X 8 HOURS S/P INGESTION OF ALCOHOL. PT REPORTS HAVING HX OF PANCREATITIS AND FEELS THE SAME. PT REPORT NAUSEA, NO VOMITING OR DIARRHEA. MD AT BEDSIDE FOR EVAL. IV LINE OBTAINED ON R AC 20G. BLOOD DRAWN AND GIVEN TO DIRECTOR TRANSLATIONAL AT BEDSIDE
[2019-04-23 04:07] LABS: ALBUMIN 4.6 g/dL (3.4-5.0); BILIRUBIN,DIRECT 0.2 mg/dL (0.0-0.2); BILIRUBIN,TOTAL 0.8 mg/dL (0.2-1.0); TOTAL PROTEIN, SERUM 8.5 g/dL (6.4-8.2)
[2019-04-23 04:09] LABS: BASOPHILS % (AUTO) 0.3 % (0.0-2.0); EOSINOPHILS % (AUTO) 0.1 % (0.0-6.0); HEMATOCRIT 48 % (39-51); LYMPHOCYTES # (AUTO) 1.5 /CMM (0.8-4.8); LYMPHOCYTES % (AUTO) 14.5 % (20.0-44.0); MEAN CORPUSCULAR HGB CONC 36 g/dl (31.0-36.0); MEAN CORPUSCULAR VOLUME 97 fL (80-96); MONOCYTES # (AUTO) 0.7 /CMM (0.1-1.30); MONOCYTES % (AUTO) 6.4 % (2.0-12.0); NEUTROPHILS # (AUTO) 8.2 /CMM (1.8-8.9); NEUTROPHILS % (AUTO) 78.7 % (43.0-81.0); PLATELET COUNT (AUTO) 202 /CMM (150-450); RED BLOOD CELL COUNT(AUTO) 4.92 MIL/uL (4.5-6.0); WHITE BLOOD COUNT (AUTO) 10.4 K/uL (4.3-11.0)
--- NOTE | 2019-04-23 04:19 | NUR ---
PT PLACED ON O2 VIA NC @ 2LPM. PT NOTED SATTING @ 88%. AWARE
[2019-04-23] MEDS ORDERED: IV NS 0.9% 1,000 ML IV ONE (04:30)
[2019-04-23] MEDS ORDERED: ACETAMINOPHEN 325 MG TABLET PO PRN (05:00)
[2019-04-23] MEDS ORDERED: MAGNESIUM HYDROXIDE 30 ML UDC PO PRN (05:00)
[2019-04-23] MEDS ORDERED: ONDANSETRON HCL/PF 4 MG/2 ML VIAL IVP PRN (05:00)
[2019-04-23] MEDS ORDERED: MAG HYDROX/AL HYDROX/SIMETH 30 ML UDC PO PRN (05:00)
--- NOTE | 2019-04-23 05:03 | NUR ---
REPORT GIVEN TO MELANY BLANDON FOR CANDICE.
--- NOTE | 2019-04-23 05:15 | NUR ---
REPORT GIVEN TO MELANY CAMPBELL FOR CANDICE
[2019-04-23 05:25] VITALS: BP 124/70
[2019-04-23 05:30] VITALS: BP 124/70
--- NOTE | 2019-04-23 05:38 | NUR ---
PT TRANSPORTED TO UNIT BY EMT ON [facility]. PT IS STABLE FOR TRANSPORT TO UNIT.
[2019-04-23] MEDS: MORPHINE SULFATE INJ 2 MG/ML DISP.SYRIN IV PRN ×3 (06:49→15:29)
[2019-04-23] MEDS: IV NS 0.9% 1,000 ML IV PRN ×3 (06:51→20:43)
--- NOTE | 2019-04-23 07:30 | NUR ---
RN OPENING NOTES RECEIVED PATIENT IN BED RESTING. A/O X3, ABLE TO MAKE NEEDS KNOWN. NOT IN ANY FORM OF DISTRESS. NO SOB. DENIED PAIN OR DISCOMFORT AT THIS TIME, JUST MEDICATED BY SENIOR CATEGORY MANAGER RN. IV ACCESS INTACT AND PATENT. KEPT PATIENT SAFE AND COMFORTABLE. BED IN LOW/LOCKED POSITION, SIDERAILS UPX2, CALL LIGHT IN REACH. WILL CONTINUE TO MONITOR ACCORDINGLY.
[2019-04-23 08:00] VITALS: BP 126/82
[2019-04-23] MEDS: FAMOTIDINE/PF INJ 20 MG/2 ML VIAL IV SCH ×2 (08:54→20:30)
--- NOTE | 2019-04-23 11:44 | NUR ---
Social service consult requested by Dr. Bhardwaj for alcohol abuse and resources. Pt. is a 39 year old male who was admitted to [facility] for Pancreatitis. SW met with pt. bedside. Pt. has been admitted to [facility] in the past for the same reason. Pt. is alert and oriented x 4. Pt. was pleasant and cooperative with SW during the assessment. Pt. states he drinks a bottle for whiskey daily. Pt. has been drinking for a few years but began drinking more heavily two months ago when he got a promotion at his job. Pt. stated, " I got promoted and hate it." Pt. has not been to an alcohol rehabilitation program in the past. Pt. has attended AA meetings. SW encouraged pt. to attend an alcohol treatment program. Pt. stated, " I will have to look into it." Pt. stated, " I have always been a heavy drinker." Pt. has a therapist Frank Solis that he sees weekly. Pt. has Depression and is currently not taking any medications, however is open to the idea. Pt's therapist Frank has referred pt. to a psychiatrist. SW to offer pt. alcohol treatment referrals prior to discharge. No other social service needs are requested at this time. SW is available, if needed.
[2019-04-23 16:00] VITALS: BP 142/89
[2019-04-23] MEDS: LORAZEPAM INJ 2 MG/ML VIAL IV PRN ×2 (16:37→20:31)
--- NOTE | 2019-04-23 19:35 | NUR ---
RN NOTES PATIENT IS ALERT AND ORIENTED X4, NOT IN APPARENT DISTRESS, NO COMPLAIN OF ABDOMINAL DISCOMFORT, PATIENT ON FULL LIQUID DIET, TOLERATING WELL, NS AT 150 ML/HR, PATIENT ALREADY ASKING WHEN IS NEXT DOSE OF MORPHINE. AT THE BEDSIDE.
--- NOTE | 2019-04-23 19:37 | NUR ---
RN CLOSING NOTES PATIENT IN STABLE CONDITION. ALL NEEDS ATTENDED AND PROVIDED. ALL DUE MEDICATIONS GIVEN ORDERED. KEPT PATIENT SAFE AND COMFORTABLE. BED IN LOW/LOCKED POSITION, SIDERAILS UPX2, CALL LIGHT IN REACH. ENDORSED TO NIGHT RN FOR CANDICE.
[2019-04-23 20:00] VITALS: BP 141/93
[2019-04-23 20:28] VITALS: BP 141/93
[2019-04-24] MEDS: MORPHINE SULFATE INJ 2 MG/ML DISP.SYRIN IV PRN (01:38)
[2019-04-24] MEDS: IV NS 0.9% 1,000 ML IV PRN ×2 (04:07→20:11)
--- NOTE | 2019-04-24 06:32 | NUR ---
RN NOTES, PM SHIFT PATIENT IS ALERT AND ORIENTED X4, STABLE ON ROOM AIR, COMPLAINING OF ABDOMINAL PAIN DUE TO ACUTE PANCREATITIS, HX OF ETOH ABUSE, FULL LIQUID DIET, NO VOMITING EPISODE, VOIDING SPONTANEOUSLY, CONTINUE NS AT 150 ML/HR, PAIN MANAGEMENT, CHECK AM LABS.
[2019-04-24 06:40] LABS: ALBUMIN 3.3 g/dL (3.4-5.0); BILIRUBIN,TOTAL 0.9 mg/dL (0.2-1.0); CALCIUM, SERUM 8.3 mg/dL (8.5-10.1); CREATININE 0.8 mg/dL (0.6-1.3); POTASSIUM 3.8 mmol/L (3.5-5.1); TOTAL PROTEIN, SERUM 6.7 g/dL (6.4-8.2)
--- NOTE | 2019-04-24 07:15 | NUR ---
RN OPENING NOTES RECEIVED PATIENT IN BED RESTING. A/O X3, ABLE TO MAKE NEEDS KNOWN. NOT IN ANY FORM OF DISTRESS. NO SOB. DENIED PAIN OR DISCOMFORT AT THIS TIME. IV ACCESS INTACT AND PATENT. KEPT PATIENT SAFE AND COMFORTABLE. BED IN LOW/LOCKED POSITION, SIDERAILS UPX2, CALL LIGHT IN REACH. WILL CONTINUE TO MONITOR ACCORDINGLY.
[2019-04-24 08:00] VITALS: BP 136/93
[2019-04-24] MEDS: LORAZEPAM INJ 2 MG/ML VIAL IV PRN (09:46)
[2019-04-24] MEDS: FAMOTIDINE/PF INJ 20 MG/2 ML VIAL IV SCH ×2 (09:46→20:32)
--- NOTE | 2019-04-24 12:45 | NUR ---
BURTON met with pt. and gave him the following alcohol treatment program resources:[facility] Substance Abuse [facility], Melisa Campbell , Direct Admissions ; [facility] intensive Outpatient treatment program brochure , [facility] ; & [facility] . BURTON encouraged pt. to attend a program.
[2019-04-24 16:00] VITALS: BP 138/86
--- NOTE | 2019-04-24 18:05 | NUR ---
RN NOTES MARILIA- LARRY OPERATOR FROM [facility] [facility] CALLED, PATIENT POSIIBLE TRANSFER TO [facility]
--- NOTE | 2019-04-24 19:20 | NUR ---
RN CLOSING NOTES PATIENT IN STABLE CONDITION. ALL NEEDS ATTENDED AND PROVIDED. ALL DUE MEDS GIVEN ORDERED. KEPT PATIENT SAFE AND COMFORTABLE. BED IN LOW/LOCKED POSITION, SIDERAILS UPX2, CALL LIGHT IN REACH. ENDORSED TO MELANY RODRÍGUEZ FOR CANDICE
--- NOTE | 2019-04-24 19:21 | NUR ---
MS RN OPENING NOTES Received patient. A/O x4, awake on semi-Kimble's position on bed. With patent peripheral IVF infusing well as ordered. Patient on RA, no SOB/respiratory distress noted at this time. Patient denies any discomfort at this time. Patient is for transfer, awaiting for the insurance's call back for accepting facility and MD. Kept on bed clean, dry and comfortable with call light within easy reach. Will continue to monitor accordingly.
[2019-04-24 20:00] VITALS: BP_SYST 128; BP_SYST 159; BP_DIAS 79; BP_DIAS 81
--- NOTE | 2019-04-24 22:05 | NUR ---
MS RN NOTES 2147 - Received a call from [facility], spoke with Juany. Patient if for transfer to [facility] room 3124 under the service of Dr. Noyola. 2150 - Called to [facility], attempting to speak with the assigned RN but per operator weapon locating radar she is with the patient right now. Call was put on hold. 2157 - Current call was cut. Redialed the number [phone], was able to speak with MELANY Noe. Report was given. All inquiries answered. 2204 - Notified patient of the update and picker tender time of [facility] ambulance ETA 2230 - 2300. Patient on bed, comfortable, no complaints made at this time. Per patient he will notify his personal driver. Will continue to monitor.
--- NOTE | 2019-04-24 23:19 | NUR ---
MS FIRE SPRINKLER APPARATUS INSPECTOR NOTES [facility] ambulance ready to slate picker the patient. Patient is for transfer to [facility], via gurney accompanied by 2 paramedics. Patient A/O x4, awake, ambulatory. On RA, no SOB/respiratory distress noted at this time. Patient denies any discomfort. Report given to paramedics, discharge papers with CD endorsed. Patient remained afebrile, no new complaints made. Picked up at this time, leaved the facility at 2319.
== END 2019-04-24 23:15 | disposition short-term general hospital (02) | DRG 438 ==
LOC: ER 03:23 → MED 04:47
PROVIDERS: ADMIT Nurse Practitioner Acute Care; ATTEND Internal Medicine
DX: K85.90 Acute pancreatitis without necrosis or infection, unspecified (principal); E43 Unspecified severe protein-calorie malnutrition; N17.0 Acute kidney failure with tubular necrosis; F10.239 Alcohol dependence with withdrawal, unspecified; E87.1 Hypo-osmolality and hyponatremia; R74.0 Nonspecific elevation of levels of transaminase and lactic acid dehydrogenase [LDH]; E16.2 Hypoglycemia, unspecified; E86.1 Hypovolemia; Z68.27 Body mass index [BMI] 27.0-27.9, adult
CPT/HCPCS: 36415; 80048-TC; 80053-TC; 80076-TC; 83690-TC; 85025-TC; 87081-TC; G0378; J2060; J2270; J2405; J3490; J7030